=== PATIENT | female | born 1985 | race African-American/Black ===

== ENCOUNTER 2018-07-07 07:52 | Inpatient (IN) ==
[2018-07-07] MEDS ORDERED: FAMOTIDINE 20 MG/2 ML VIAL IV ONE (08:08)
[2018-07-07] MEDS ORDERED: ceFAZolin 3,000 MG in SYRINGE 1 EACH IV ONE (08:08)
[2018-07-07] MEDS ORDERED: CITRIC ACID/SODIUM CITRATE 30 ML UDCUP PO ONE (08:08)
[2018-07-07 08:40] LABS: Basophils % 0.2 % (0.0-0.8); Eosinophils # 0.1 10*3/uL (0.0-0.87); Eosinophils % 0.9 % (0.00-10.9); Hematocrit 31.1 VOL% (35.7-47.0); Hemoglobin 9.7 GM/DL (12.0-16.0); Immature Granulocytes % 0.9 %; Immature Granulocytes Absolute 0.08 #; Lymphocytes # 1.8 10*3/uL (1.4-4.0); Lymphocytes % 19.5 % (21.3-54.2); Mean Corpuscular HGB Conc 31.2 GM/DL (32-36); Mean Corpuscular Hemoglobin 26 PG (27-34); Mean Corpuscular Volume 83.6 FL (87-102); Mean Platelet Volume 10.8 FL (9.6-12.0); Monocytes % 10.6 % (1.7-12.7); Neutrophils # 6.3 10*3/uL (1.4-7.4); Neutrophils % 67.9 % (38.7-73.9); Platelet Count 222 T/CUMM (130-400); Red Blood Count 3.72 MC/CUMM (3.8-5.5); White Blood Count 9.2 T/CUMM (4-12)
[2018-07-07] MEDS: LACTATED RINGERS 1,000 ML IV SCH ×2 (08:48→23:22)
[2018-07-07 09:07] LABS: Albumin 2.7 G/DL (3.4-5.0); Bilirubin,Total 0.4 MG/DL (0.2-1.0); Calcium 8.7 MG/DL (8.5-10.1); Osmolality,Calculated 272.5 MOS/KG (273-304); Potassium 3.6 MMOL/L (3.5-5.1); Total Protein 7.4 G/DL (6.4-8.3)
[2018-07-07] MEDS ORDERED: OXYTOCIN/LR 20 UNIT/1,000 ML BAG IV ONE (10:16)
[2018-07-07] MEDS ORDERED: LACTATED RINGERS 1,000 ML IV ONE (10:17)
[2018-07-07 10:18] LABS: PT Patient Result 10.2 SECS; Partial Thromboplastin Time 24.4 SECS (0-40)
[2018-07-07] MEDS ORDERED: SUGAMMADEX 200 MG/2 ML VIAL IV ONE (13:18)
[2018-07-07] MEDS ORDERED: MORPHINE 10 MG/1 ML VIAL IV PRN (14:00)
[2018-07-07] MEDS ORDERED: ACETAMINOPHEN INJ 1,000 MG in PREMIX 1 EACH IV ONE ×2 (14:02→18:00)
[2018-07-07] MEDS ORDERED: NALOXONE 0.4 MG/ML VIAL IV PRN (14:03)
[2018-07-07 14:05] LABS: Cord Arterial Blood HCO3 21.5 MMOL/L
[2018-07-07 14:09] LABS: Cord Venous Blood HCO3 23.3 MMOL/L; Cord Venous Blood PCO2 47.7 MMHG; Cord Venous Blood PO2 60.6 MMHG
[2018-07-07] MEDS ORDERED: fentaNYL 100 MCG/2 ML VIAL ONE (14:23)
[2018-07-07] MEDS ORDERED: ONDANSETRON 4 MG/2 ML VIAL ONE (14:24)
[2018-07-07] MEDS ORDERED: MORPHINE 10 MG/10 ML VIAL ONE (14:24)
[2018-07-07] MEDS ORDERED: PROPOFOL 200 MG/20 ML VIAL IV ONE (14:25)
[2018-07-07] MEDS ORDERED: BUPIVACAINE SPINAL 0.75% 2 ML AMP SPINAL ONE (14:25)
[2018-07-07] MEDS ORDERED: SUCCINYLCHOLINE 200 MG/10 ML VIAL ONE (14:26)
[2018-07-07] MEDS ORDERED: ROCURONIUM 100 MG/10 ML VIAL IV ONE (14:26)
[2018-07-07] MEDS ORDERED: SEVOFLURANE 1 UNIT/15 MINUTE INH ONE (14:26)
[2018-07-07] MEDS ORDERED: MORPHINE PCA 30 MG/30 ML SYRINGE IV SCH (14:30)
[2018-07-07 15:40] LABS: Apearance,Urine CLEAR (Clear); Bilirubin,Urine Negative (Negative); Blood, Urine Negative (Negative); Glucose,Urine (UA) Negative (Negative); Hyaline Casts,Urine 1 /LPF (0-3); Ketones,Urine 20 mg/dL (Negative); Nitrite,Urine Negative (Negative); Protein,Urine Negative; Squamous Epithelial Cell,Urine Occasional /HPF (0-10); Urine Color Straw (Yellow); Urine Specific Gravity 1.009 (1.001-1.035); Urine Urobilinogen < 2.0 EU/DL (0.2-1.0); WBC,Urine 1 /HPF (0-6)
[2018-07-07] MEDS ORDERED: RHO(D) IMMUNE GLOBULIN 300 MCG SYRINGE IM ONE (18:37)
[2018-07-07] MEDS ORDERED: SODIUM CHLORIDE 0.9% 100 ML IV ONE (20:11)
[2018-07-07] MEDS: DOCUSATE SODIUM 100 MG CAPSULE PO SCH (20:17)
[2018-07-07] MEDS: ceFAZolin 1,000 MG in SYRINGE 1 EACH IV SCH (20:19)
[2018-07-07 20:55] LABS: Basophils % 0.2 % (0.0-0.8); Hematocrit 26.5 VOL% (35.7-47.0); Immature Granulocytes % 0.7 %; Immature Granulocytes Absolute 0.12 #; Lymphocytes # 1.6 10*3/uL (1.4-4.0); Mean Corpuscular HGB Conc 30.2 GM/DL (32-36); Mean Corpuscular Hemoglobin 26 PG (27-34); Mean Corpuscular Volume 86.3 FL (87-102); Mean Platelet Volume 11.2 FL (9.6-12.0); Monocytes # 1.5 10*3/uL (0.11-0.8); Monocytes % 8.2 % (1.7-12.7); Neutrophils # 14.5 10*3/uL (1.4-7.4); Neutrophils % 81.9 % (38.7-73.9); Platelet Count 214 T/CUMM (130-400); Red Blood Count 3.07 MC/CUMM (3.8-5.5); White Blood Count 17.8 T/CUMM (4-12)
[2018-07-07] MEDS ORDERED: ONDANSETRON 4 MG/2 ML VIAL IV PRN (21:32)
[2018-07-08] MEDS: ceFAZolin 1,000 MG in SYRINGE 1 EACH IV SCH (04:23)
[2018-07-08] MEDS ORDERED: IBUPROFEN 800 MG TABLET PO PRN (06:00)
[2018-07-08] MEDS: IBUPROFEN 800 MG TABLET PO SCH ×4 (06:01→20:19)
[2018-07-08] MEDS: SIMETHICONE CHEW 80 MG TABLET PO PRN ×2 (06:25→20:18)
[2018-07-08 07:02] LABS: Basophils % 0.1 % (0.0-0.8); Eosinophils % 0.1 % (0.00-10.9); Hematocrit 26.3 VOL% (35.7-47.0); Hemoglobin 7.8 GM/DL (12.0-16.0); Immature Granulocytes % 0.8 %; Immature Granulocytes Absolute 0.11 #; Lymphocytes # 1.6 10*3/uL (1.4-4.0); Lymphocytes % 11.4 % (21.3-54.2); Mean Corpuscular HGB Conc 29.7 GM/DL (32-36); Mean Corpuscular Hemoglobin 26 PG (27-34); Mean Corpuscular Volume 86.8 FL (87-102); Mean Platelet Volume 11.1 FL (9.6-12.0); Monocytes # 1.2 10*3/uL (0.11-0.8); Monocytes % 8.5 % (1.7-12.7); Neutrophils # 10.9 10*3/uL (1.4-7.4); Neutrophils % 79.1 % (38.7-73.9); Platelet Count 208 T/CUMM (130-400); Red Blood Count 3.03 MC/CUMM (3.8-5.5); Red Cell Distribution Width 17.1 % (9.3-17.3); White Blood Count 13.8 T/CUMM (4-12)
[2018-07-08] MEDS: MAGNESIUM HYDROXIDE SUSP 30 ML UDCUP PO PRN ×2 (08:15→20:18)
[2018-07-08] MEDS: MULTIVITAMIN (PRENATAL) TABLET PO SCH (08:15)
[2018-07-08] MEDS: DOCUSATE SODIUM 100 MG CAPSULE PO SCH ×2 (08:15→20:18)
[2018-07-08] MEDS: LACTATED RINGERS 1,000 ML IV SCH (08:33)
[2018-07-08] MEDS ORDERED: BISACODYL 10 MG SUPP RECTAL PRN (20:12)
[2018-07-08] MEDS: FERROUS SULFATE 325 MG TABLET PO SCH (20:18)
[2018-07-09] MEDS: MULTIVITAMIN (PRENATAL) TABLET PO SCH (08:00)
[2018-07-09] MEDS: DOCUSATE SODIUM 100 MG CAPSULE PO SCH (08:00)
[2018-07-09] MEDS: FERROUS SULFATE 325 MG TABLET PO SCH (08:01)
[2018-07-09] MEDS: IBUPROFEN 800 MG TABLET PO SCH (08:01)
[2018-07-09 08:22] VITALS: BP 126/81
== END 2018-07-09 12:38 | disposition home or self-care (01) | DRG 765 ==
LOC: N.LDOUT 07:52 → N.LD 07:54 → N.OB 17:31
PROVIDERS: ADMIT Obstetrics & Gynecology; ATTEND Obstetrics & Gynecology